=== PATIENT | male | born 1965 | race Hispanic/Latino ===

== ENCOUNTER 2020-02-08 16:02 | Emergency (ER) | payer BC ==
[2020-02-08 16:11] VITALS: BP 137/89
--- NOTE | 2020-02-08 16:43 | Emergency Department Report ---
Blank Doc - Documentation Documentation: 54-year-old male that presents with chest pain and SOB. Stated is supposed to have a heart cath tomorrow morning. This initial assessment/diagnostic orders/clinical plan/treatment(s) is/are subject to change based on patient's health status, clinical progression and re-assessment by fellow clinical providers in the ED. Further treatment and workup at subsequent clinical providers discretion. Patient/guardians urged not to elope from the ED as their condition may be serious if not clinically assessed and managed. Initial orders include: 1- Patient sent to MAIN ED for further evaluation and treatment 2- cardiac workup
--- NOTE | 2020-02-08 17:43 | XRay Report ---
CHEST 2 VIEWS INDICATION / CLINICAL INFORMATION: Chest pain. COMPARISON: None available. FINDINGS: SUPPORT DEVICES: None. HEART / MEDIASTINUM: No significant abnormality. LUNGS / PLEURA: No significant pulmonary or pleural abnormality. No pneumothorax. ADDITIONAL FINDINGS: No significant additional findings. IMPRESSION: 1. No acute findings. Signer Name: Jaxon Avilez MD Signed: 02/08/2020 5:38 PM Workstation Name: [email or web address]
[2020-02-08 18:06] LABS: Basophils % (Auto) 0.6 % (0.0-1.8); Eosinophils # (Auto) 0.1 K/mm3 (0.0-0.4); Eosinophils % (Auto) 1.4 % (0.0-4.3); Hematocrit 39.6 % (35.5-45.6); Hemoglobin 13.4 gm/dl (11.8-15.2); Lymphocytes # (Auto) 2.3 K/mm3 (1.2-5.4); Lymphocytes % (Auto) 32.7 % (13.4-35.0); Mean Corpuscular HGB Conc 34 % (32-34); Mean Corpuscular Volume 88 fl (84-94); Monocytes # (Auto) 0.5 K/mm3 (0.0-0.8); Monocytes % (Auto) 7.8 % (0.0-7.3); Platelet Count 170 K/mm3 (140-440); Red Blood Count 4.51 M/mm3 (3.65-5.03); Red Cell Distribution Width 13.7 % (13.2-15.2)
[2020-02-08 18:19] LABS: Alanine Aminotransferase 29 units/L (7-56); Albumin 4.1 g/dL (3.9-5); BUN/Creatinine Ratio 16; Blood Urea Nitrogen 18 mg/dL (9-20); Calcium 9.8 mg/dL (8.4-10.2); Hemolysis Index 13
[2020-02-08 18:30] LABS: INR 1.05 (0.87-1.13)
[2020-02-08 18:31] LABS: Partial Thromboplastin Time 30.6 Sec. (24.2-36.6)
== END 2020-02-08 19:00 | disposition left against medical advice (07) ==
LOC: ED 16:02
DX: R07.89 Other chest pain (principal); Z53.21 Procedure and treatment not carried out due to patient leaving prior to being seen by health care provider
CPT/HCPCS: 36415; 71046; 80053; 84484; 85025; 85610; 85730; 93005

== ENCOUNTER 2020-02-09 07:25 | Outpatient (CLI) | payer BC ==
[2020-02-09] MEDS ORDERED: METOPROLOL TARTRATE 50 MG TAB PO SCH (09:00)
[2020-02-09 09:19] LABS: Blood Urea Nitrogen 14 mg/dL (9-20)
[2020-02-09] MEDS ORDERED: ATROPINE 0.1% (1 MG/10 ML) CARDIAC SYRINGE ONE (10:24)
[2020-02-09] MEDS ORDERED: METOPROLOL TARTRATE 5 MG/5 ML INJ IV ONE (10:26)
[2020-02-09] MEDS ORDERED: NITROGLYCERIN 0.4 MG TAB SUBL SL ONE (10:34)
[2020-02-09] MEDS ORDERED: METOPROLOL SUCCINATE XL 25 MG TAB PO SCH (11:00)
[2020-02-09 11:04] VITALS: BP 128/75
--- NOTE | 2020-02-09 18:47 | Cat Scan Report ---
The following report is a Radiology over-read of a CTA Heart study which will be reported separately by Cardiology. CTA HEART OVER-READ TECHNIQUE: Limited CT through the heart and lung bases. All CT scans at this location are performed u sing CT dose reduction for ALARA by means of automated exposure control. COMPARISON: None available. FINDINGS: VISUALIZED LUNGS / PLEURA: No significant abnormality. SOFT TISSUES: No significant abnormality. SKELETAL SYSTEM: No significant abnormality. ADDITIONAL FINDINGS: No significant additional abnormality. IMPRESSION: 1. No significant extracardiac abnormality. Signer Name: Krishna Holden MD Signed: 02/09/2020 6:43 PM Workstation Name: [email or web address]
== END 2020-02-09 07:26 | disposition home or self-care (01) ==
LOC: CATHLABREC 07:25
PROVIDERS: ATTEND Internal Medicine
DX: R06.02 Shortness of breath (principal)
CPT/HCPCS: 36415; 75574; 82565; 84520; Q9967; J0461